=== PATIENT | male | born 1950 | race Caucasian/White ===

== ENCOUNTER 2020-08-16 17:42 | Emergency (ER) | payer MEDICARE, OTHER ==
[~2020-08-16] VITALS: Ht 180.3 cm; Wt 88.5 kg
[~2020-08-16 17:42] MED LIST: AML5T PO; ASPI325T4 PO; CLIN300C2 PO; DILANTIN; Divalproex Sodium PO; HYDR-4833 PO; KEP500T PO; METO-6 PO
[2020-08-16] MEDS ORDERED: NITROGLYCERIN 0.4 MG SL TAB SL ONE (18:45)
[2020-08-16] MEDS ORDERED: cloNIDine HCL 0.1 MG TAB PO ONE ×3 (18:45→21:15)
[2020-08-16 19:35] LABS: Basophils # (auto) 0.1 10 ^3/uL (0-0.2); Basophils % (auto) 0.7 % (0.0-2.0); Eosinophils # (auto) 0 10 ^3/uL (0-0.8); Eosinophils % (auto) 0.6 % (0.0-7.0); Hematocrit 35.2 % (41.0-53.0); Hemoglobin 11.6 g/dL (13.5-17.5); Lymphocytes % (auto) 13.3 % (10.0-50.0); Mean Corpuscular Hemoglobin 30.7 pg (28.0-32.0); Mean Corpuscular Hgb Conc. 32.9 g/dL (32.0-36.0); Mean Corpuscular Volume 93.2 fL (80.0-100.0); Monocytes # (auto) 0.5 10 ^3/uL (0-1.3); Monocytes % (auto) 6.3 % (0.0-12.0); Neutrophils % (auto) 79.1 % (37.0-80.0); Platelet Count (auto) 174 10^3/uL (140-450); Red Blood Cells 3.78 10^6/uL (4.5-5.90); Red Cell Distribution Width 16.2 % (11.8-14.3); White Blood Cell 7.6 10^3/uL (4.4-10.8)
[2020-08-16 19:52] LABS: INR 0.99 (0.9-1.15); Partial Thromboplastin Time 21.8 sec (23.0-31.2)
[2020-08-16 20:09] LABS: Albumin 3.9 g/dL (3.4-5.0); Calcium 9.6 mg/dL (8.5-10.1); Magnesium 2.5 mg/dL (1.6-2.6); Potassium 3.5 mmol/L (3.5-5.1)
[2020-08-16 20:14] LABS: BUN/Creatinine Ratio 10.6; Bilirubin, Total 0.7 mg/dL (0.2-1.0); Total Protein 6.7 g/dL (6.4-8.2)
[2020-08-17] MEDS ORDERED: hydrALAZINE HCL 20 MG/ML VL IV ONE (01:45)
[2020-08-17] MEDS ORDERED: amLODIPine BESYLATE 5 MG TAB PO ONE (02:00)
[2020-08-17] MEDS ORDERED: METOPROLOL SUCCINATE XL 50 MG TAB PO ONE (02:45)
[2020-08-17 10:00] VITALS: BP 152/75
== END 2020-08-17 12:35 | disposition home or self-care (01) ==
LOC: EDUNIT# 17:42 → EDBD 17:42 → ER 17:42
DX: I21.4 Non-ST elevation (NSTEMI) myocardial infarction (principal); I13.0 Hypertensive heart and chronic kidney disease with heart failure and stage 1 through stage 4 chronic kidney disease, or unspecified chronic kidney disease; N18.9 Chronic kidney disease, unspecified; I50.89 Other heart failure; R41.82 Altered mental status, unspecified; D64.9 Anemia, unspecified; F03.90 Unspecified dementia, unspecified severity, without behavioral disturbance, psychotic disturbance, mood disturbance, and anxiety
CPT/HCPCS: 36415; 70450; 71045; 80053; 80320; 82140; 83735; 83880; 84443; 84484; 85025; 85379; 85610; 85730